=== PATIENT | male | born 1965 | race Hispanic/Latino ===

== ENCOUNTER 2017-05-25 03:11 | Emergency (ER) | payer MEDICARE ==
[2017-05-25 04:19] LABS: Basophils % (Auto) 0.6 % (0.0-1.8); Hematocrit 41.3 % (35.5-45.6); Hemoglobin 13.8 gm/dl (11.8-15.2); Mean Corpuscular HGB Conc 33 % (32-34); Mean Corpuscular Hemoglobin 29 pg (28-32); Mean Corpuscular Volume 87 fl (84-94); Platelet Count 149 K/mm3 (140-440); Red Blood Count 4.76 M/mm3 (3.65-5.03); Red Cell Distribution Width 13.8 % (13.2-15.2); White Blood Count 11.3 K/mm3 (4.5-11.0)
[2017-05-25 04:25] LABS: Anion Gap 20 mmol/L; Blood Urea Nitrogen 10 mg/dL (9-20); Calcium 8.9 mg/dL (8.4-10.2); Carbon Dioxide 23 mmol/L (22-30); Chloride 99.5 mmol/L (98-107); Glucose 99 mg/dL (75-100); Potassium 3.4 mmol/L (3.6-5.0); Sodium 139 mmol/L (137-145)
[2017-05-25 06:48] LABS: Bilirubin,Urine NEG (Negative); Blood,Urine NEG (Negative); Ketones,Urine NEG (Negative); Leukocyte Esterase,Urine NEG (Negative); Nitrite,Urine NEG (Negative); Protein,Urine <15 mg/dL mg/dL (Negative); Urobilinogen,Urine < 2.0 mg/dL (<2.0); WBC,Urine < 1.0 /HPF (0.0-6.0)
[2017-05-25] MEDS ORDERED: K-DUR PO ONE (07:54)
[2017-05-25 07:58] VITALS: BP 124/70
[2017-05-25] MEDS ORDERED: TORADOL IM ONE (08:08)
--- NOTE | 2017-05-25 08:14 | Emergency Department Report ---
HPI - General Chief Complaint: Back Pain/Injury Time Seen by Provider: 05/25/17 07:54 - HPI HPI: This is a 51-year-old male who presents to the emergency department via EMS from home with complaint of a one-week history of left low back pain with some radiation down his leg. The patient has a history of neuropathy that shows up in the lower extremities and feet. Patient says that he has been urinating a lot with some burning on urination but that his primary care physician is following him for this issue. He sees Dr. Nur for primary care and has an appointment tomorrow on the . He did not take anything for symptoms prior to presentation. The patient's symptoms worsen with ambulation or exertion but he says he is able to walk around without any instability. He has a past medical history of GERD, HIV, neuropathy and a past psychiatric history of bipolar disorder, schizoaffective and PTSD. No recent travel or sick contacts at home. ED Past Medical Hx - Past Medical History Previous Medical History?: Yes Hx GERD: Yes Hx Psychiatric Treatment: Yes (bipolar, schizo affective, PTSD) Hx HIV: Yes Additional medical history: neuropathy - Surgical History Past Surgical History?: Yes Additional Surgical History: pins in B/L hips - Social History Smoking Status: Current Every Day Smoker Substance Use Type: None - Medications Home Medications: Home Medications Medication Instructions Recorded Confirmed Last Taken Type Diazepam Tab [Valium] 2 mg PO TID PRN #8 tablet 05/25/17 Unknown Rx Ibuprofen [Motrin] 800 mg PO Q8HR PRN #20 tablet 05/25/17 Unknown Rx ED Review of Systems ROS: Stated complaint: LOWER BACK PAIN Other details as noted in HPI Comment: All other systems reviewed and negative Constitutional: denies: chills, fever Eyes: denies: eye pain, eye discharge, vision change ENT: denies: ear pain, throat pain Respiratory: denies: cough, shortness of breath, wheezing Cardiovascular: denies: chest pain, palpitations Gastrointestinal: denies: abdominal pain, nausea, diarrhea Genitourinary: denies: urgency, dysuria Musculoskeletal: back pain. denies: joint swelling Skin: denies: rash, lesions Neurological: denies: headache, numbness Physical Exam - Physical Exam Vital Signs: Vital Signs 07/05/17 07/05/17 07/05/17 03:16 03:36 07:33 Temperature 98.9 F 98.9 F Pulse Rate 66 60 56 L Respiratory 18 18 18 Rate Blood Pressure 130/79 Blood Pressure 130/79 124/70 [Right] O2 Sat by Pulse 98 98 Oximetry Physical Exam: GENERAL: The patient is well-developed well-nourished. HEENT: Normocephalic. Atraumatic. Extraocular motions are intact. Patient has moist mucous membranes. Pupils equal reactive to light bilaterally. NECK: Supple. Trachea is midline. CHEST/LUNGS: Clear to auscultation. There is no respiratory distress noted. HEART/CARDIOVASCULAR: Regular. There is no tachycardia. There is no gallop rub or murmur. ABDOMEN: Abdomen is soft, nontender. Patient has normal bowel sounds. There is no abdominal distention. SKIN: Skin is warm and dry. NEURO: The patient is awake, alert, and oriented. The patient is cooperative. The patient has no focal neurologic deficits. The patient has normal speech. Normal gait. DTR +2 over 4 patellar bilaterally. MUSCULOSKELETAL: There is no tenderness or deformity. There is no limitation range of motion. There is no evidence of acute injury. Muscle strength 5 out of 5 upper and lower extremities bilaterally including EHL. Positive left straight leg raise test that reproduces his symptoms. BACK: No midline thoracic or lumbar tenderness to palpation or deformity. ED Course Vital Signs 05/25/17 05/25/17 05/25/17 03:16 03:36 07:33 Temperature 98.9 F 98.9 F Pulse Rate 66 60 56 L Respiratory 18 18 18 Rate Blood Pressure 130/79 Blood Pressure 130/79 124/70 [Right] O2 Sat by Pulse 98 98 Oximetry ED Medical Decision Making - Lab Data Result diagrams: 05/25/17 03:47 05/25/17 03:47 - Medical Decision Making 51-year-old male presents with one-week history of left lower back pain with some radiation down the leg. It is reproducible on the straight leg raise test. There is no focal, motor or sensory deficits, numbness or paresthesias or any neurological deficits. No midline thoracic or lumbar tenderness to palpation or deformity. He appears low suspicion for any of the emergent back condition such as cauda equina, epidural abscess or cord compression syndrome. It appears more consistent with sciatica. The patient was given a dose of Toradol here for his discomfort. He has an appointment with his primary care physician tomorrow. He will be given a very low-dose of a muscle relaxant along with anti-inflammatory is to help him until that time. We discussed ice and/or heat intermittently. He will return to the ER if any worsening of symptoms or any acute distress. - Differential Diagnosis sciatica, lumbar radiculopathy, muscle spasm, contusion Critical Care Time: No Critical care attestation.: If time is entered above; I have spent that time in minutes in the direct care of this critically ill patient, excluding procedure time. ED Disposition Clinical Impression: Sciatica Qualifiers: Laterality: left Qualified Code(s): M54.32 - Sciatica, left side Back pain Qualifiers: Back pain location: low back pain Chronicity: unspecified Back pain laterality : left Sciatica presence: with sciatica Sciatica laterality: sciatica of left side Qualified Code(s): M54.42 - Lumbago with sciatica, left side Disposition: TO HOME OR SELFCARE Is pt being admited?: No Condition: Stable Instructions: Sciatica (ED) Additional Instructions: Please follow-up with your primary care doctor as previously scheduled tomorrow. Return to the emergency department with any worsening of your symptoms or any acute distress. You've been prescribed a medication that is sedating. Therefore this medication cannot be mixed with alcohol, or taken prior to driving, working, or being responsible for children. Prescriptions: Diazepam Tab [Valium] 2 mg PO TID PRN #8 tablet PRN Reason: Muscle Spasm Ibuprofen [Motrin] 800 mg PO Q8HR PRN #20 tablet PRN Reason: Pain Referrals: ADALI HARRISON MD [Primary Care Provider] - 3-5 Days Time of Disposition: 08:46
== END 2017-05-25 08:51 | disposition home or self-care (01) ==
LOC: ED 03:11
DX: M54.42 Lumbago with sciatica, left side (principal); K21.9 Gastro-esophageal reflux disease without esophagitis; F25.9 Schizoaffective disorder, unspecified; F31.9 Bipolar disorder, unspecified; F17.200 Nicotine dependence, unspecified, uncomplicated
CPT/HCPCS: 36415; 80048; 81001; 85025; 96372; 99284; J1885

== ENCOUNTER 2017-05-30 20:19 | Emergency (ER) | payer MEDICARE ==
--- NOTE | 2017-05-31 00:27 | Emergency Department Report ---
ED Psych HPI - General Chief Complaint: Psych Stated Complaint: FEELING SUICIDAL Time Seen by Provider: 05/31/17 00:04 Source: patient Mode of arrival: Ambulatory Limitations: No Limitations - History of Present Illness Initial Comments: 51-year-old male presents to the emergency department for psychiatric evaluation. Patient states he's been feeling depressed and having some suicidal thoughts. Patient states he was thinking about taking all his medications. He denies homicidal ideations. He also denies auditory or visual hallucinations. Patient states that he has had decreased appetite, but has been able to tolerate fluids without difficulty. There are no other complaints. MD Complaint: suicidal ideation, feels depressed -: This morning Associated Psychiatric Symptoms: depression, suicidal ideation History of same: Yes Quality: constant Improves With: none Worsens With: none Associated Symptoms: denies other symptoms Treatments Prior to Arrival: none If Self Harm: admits thoughts of, has plan - Related Data Home Medications Medication Instructions Recorded Confirmed Last Taken ARIPiprazole [Abilify TAB] 20 mg PO QHS 05/31/17 05/31/17 05/31/17 Divalproex ER [DepaKOTE ER] 1,000 mg PO QDAY 05/31/17 05/31/17 05/31/17 Dolutegravir Sodium [Tivicay] 50 mg PO DAILY 05/31/17 05/31/17 05/31/17 Gabapentin [Neurontin] 800 mg PO TID 05/31/17 05/31/17 05/31/17 Ranitidine HCl [Zantac 300 MG TAB] 300 mg PO DAILY 05/31/17 05/31/17 05/31/17 Tamsulosin [Flomax] 0.4 mg PO QDAY 05/31/17 05/31/17 05/31/17 Previous Rx's Medication Instructions Recorded Last Taken Type Diazepam Tab [Valium] 2 mg PO TID PRN #8 tablet 05/25/17 Unknown Rx Allergies Allergy/AdvReac Type Severity Reaction Status Date / Time No Known Allergies Allergy Unverified 05/25/17 03:35 ED Review of Systems ROS: Stated complaint: FEELING SUICIDAL Other details as noted in HPI Comment: All other systems reviewed and negative Psychiatric: depression, suicidal thoughts ED Past Medical Hx - Past Medical History Previous Medical History?: Yes Hx GERD: Yes Hx Psychiatric Treatment: Yes (bipolar, schizo affective, PTSD) Hx HIV: Yes Additional medical history: neuropathy - Surgical History Past Surgical History?: Yes Additional Surgical History: pins in B/L hips - Family History Family history: no significant - Social History Smoking Status: Current Every Day Smoker - Medications Home Medications: Home Medications Medication Instructions Recorded Confirmed Last Taken Type Diazepam Tab [Valium] 2 mg PO TID PRN #8 tablet 05/25/17 05/31/17 Unknown Rx ARIPiprazole [Abilify TAB] 20 mg PO QHS 05/31/17 05/31/17 05/31/17 History Divalproex ER [DepaKOTE ER] 1,000 mg PO QDAY 05/31/17 05/31/17 05/31/17 History Dolutegravir Sodium [Tivicay] 50 mg PO DAILY 05/31/17 05/31/17 05/31/17 History Gabapentin [Neurontin] 800 mg PO TID 05/31/17 05/31/17 05/31/17 History Ranitidine HCl [Zantac 300 MG TAB] 300 mg PO DAILY 05/31/17 05/31/17 05/31/17 History Tamsulosin [Flomax] 0.4 mg PO QDAY 05/31/17 05/31/17 05/31/17 History ED Physical Exam - General Limitations: No Limitations General appearance: alert, in no apparent distress - Head Head exam: Present: atraumatic, normocephalic - Eye Eye exam: Present: normal appearance, PERRL, EOMI - ENT ENT exam: Present: normal exam, normal orophraynx, mucous membranes moist - Neck Neck exam: Present: normal inspection, full ROM. Absent: tenderness - Respiratory Respiratory exam: Present: normal lung sounds bilaterally. Absent: respiratory distress - Cardiovascular Cardiovascular Exam: Present: regular rate, normal rhythm, normal heart sounds - GI/Abdominal GI/Abdominal exam: Present: soft, normal bowel sounds. Absent: distended, tenderness - Extremities Exam Extremities exam: Present: normal inspection, full ROM. Absent: tenderness - Back Exam Back exam: Present: normal inspection, full ROM. Absent: tenderness - Neurological Exam Neurological exam: Present: alert, oriented X3. Absent: motor sensory deficit - Skin Skin exam: Present: warm, dry, intact ED Course Vital Signs 05/30/17 05/30/17 21:33 21:52 Temperature 97.8 F 98 F Pulse Rate 73 73 Respiratory 18 16 Rate Blood Pressure 144/94 Blood Pressure 144/94 [Right] O2 Sat by Pulse 100 97 Oximetry ED Medical Decision Making - Lab Data Result diagrams: 05/31/17 00:12 05/31/17 00:12 - Medical Decision Making Laboratory results reviewed. Patient has been medically cleared and evaluated by mental health. Form 1013 has been signed and placed on the patient's chart. Patient is awaiting placement. - Differential Diagnosis depression, bipolar disorder, schizoaffective disorder Critical care attestation.: If time is entered above; I have spent that time in minutes in the direct care of this critically ill patient, excluding procedure time. ED Disposition Clinical Impression: Suicidal ideations, Schizoaffective disorder, bipolar type Disposition: [id number] PSY HOSP/PSY UNIT Is pt being admited?: No Condition: Stable Referrals: PRIMARY CARE [Primary Care Provider] - 3-5 Days Time of Disposition: 02:17
[2017-05-31 00:29] LABS: Basophils % (Auto) 0.7 % (0.0-1.8); Eosinophils % (Auto) 0.8 % (0.0-4.3); Hematocrit 44.6 % (35.5-45.6); Mean Corpuscular HGB Conc 34 % (32-34); Mean Corpuscular Hemoglobin 29 pg (28-32); Mean Corpuscular Volume 88 fl (84-94); Platelet Count 160 K/mm3 (140-440); Red Blood Count 5.08 M/mm3 (3.65-5.03); Red Cell Distribution Width 14.1 % (13.2-15.2); White Blood Count 8.3 K/mm3 (4.5-11.0)
[2017-05-31 00:44] LABS: Anion Gap 17 mmol/L; BUN/Creatinine Ratio 21.66; Blood Urea Nitrogen 13 mg/dL (9-20); Carbon Dioxide 23 mmol/L (22-30); Chloride 98.7 mmol/L (98-107); Glucose 138 mg/dL (75-100); Potassium 3.1 mmol/L (3.6-5.0); Sodium 136 mmol/L (137-145)
[2017-05-31 05:37] LABS: Urine Drugs of Abuse Note Disclamer
[2017-05-31 05:44] LABS: Bilirubin,Urine NEG (Negative); Blood,Urine NEG (Negative); Ketones,Urine NEG (Negative); Leukocyte Esterase,Urine NEG (Negative); Nitrite,Urine NEG (Negative); Urobilinogen,Urine < 2.0 mg/dL (<2.0)
--- NOTE | 2017-05-31 14:12 | Consultation ---
History of Present Illness - Reason for Consult Consult date: 05/31/17 Reason for consult: Mental Health Evaluation Requesting physician: LORNA GREENE - Chief Complaint Chief complaint: "I don't feel right" - History of Present Psychiatric Illness 51-year-old male presents to the emergency department for psychiatric evaluation. Today patient is cooperative, but irritable during assessment. He stated that his SI's has increased over the past week. He stated that his family does not love him. Also, his family blame their mother's on him. He stated that his current situation had gotten the best of him. He stated that voices are telling him to kill himself. He stated that he hear voices "often." Patient admit to SI's. Patient stated that he has attempted suicide multiple times in the past by overdosing and self injury. He stated wanting help for his mental instability, but don't know where to start. He denies HI's, VH's and a poor appetite. He denies recreational drug use, but stated he use a "little cocaine" 5 days ago. He denies excessive alcohol. Patient stated that he is homeless. Medications and Allergies Allergies Allergy/AdvReac Type Severity Reaction Status Date / Time No Known Allergies Allergy Unverified 05/25/17 03:35 Home Medications Medication Instructions Recorded Confirmed Last Taken Type Diazepam Tab [Valium] 2 mg PO TID PRN #8 tablet 05/25/17 05/31/17 Unknown Rx ARIPiprazole [Abilify TAB] 20 mg PO QHS 05/31/17 05/31/17 05/31/17 History Divalproex ER [DepaKOTE ER] 1,000 mg PO QDAY 05/31/17 05/31/17 05/31/17 History Dolutegravir Sodium [Tivicay] 50 mg PO DAILY 05/31/17 05/31/17 05/31/17 History Gabapentin [Neurontin] 800 mg PO TID 05/31/17 05/31/17 05/31/17 History Ranitidine HCl [Zantac 300 MG TAB] 300 mg PO DAILY 05/31/17 05/31/17 05/31/17 History Tamsulosin [Flomax] 0.4 mg PO QDAY 05/31/17 05/31/17 05/31/17 History Past psychiatric history - Past Medical History Past Medical History: GERD, HIV/AIDS Past Surgical History: No surgical history - past Psychiatric treatment and history Psych: Bipolar psychiatric treatment history: Patient has been to multiple inpatient settings. Patient denies fam psy hx. - Social History Social history: other (Homeless) Mental Status Exam - Vital signs Last Vital Signs Temp 98 F 05/30/17 21:52 Pulse 63 05/31/17 08:07 Resp 18 05/31/17 08:07 BP 143/82 05/31/17 08:07 Pulse Ox 98 05/31/17 08:07 - Exam Narrative exam: ROS: (+) depression, (+) psychotic MSE: Appearance: cooperative, irritable Behavior: poor eye contact Speech: regular rate and tone Mood: "not well" Affect: labile Thought Process: circumstantial Thought Content: denies SI and VH's Motor Activity: ambulatory Cognition: A/Ox 3 Insight: limited Judgment: limited Results Result Diagrams: 05/31/17 00:12 05/31/17 00:12 Abnormal lab results 05/31/17 05/31/17 Range/Units 00:12 00:12 RBC 5.08 H (3.65-5.03) M/mm3 Lymph % (Auto) 38.1 H (13.4-35.0) % Sodium 136 L (137-145) mmol/L Potassium 3.1 L (3.6-5.0) mmol/L Creatinine 0.6 L (0.8-1.5) mg/dL Glucose 138 H (75-100) mg/dL All other labs normal. Assessment and Plan Assessment and plan: Impression: Historical Dx: Bipolar. Intermittent AH's. Today patient is cooperative, but irritable during assessment. Patient denies HI's and VH"s. DDx: R/O Mood DO, Schizoaffective DO Recommendation/Plan: Continue 1013 with placement to inpatient psy services. Start Abilify 20 mg PO HS for mood/psychotic symptoms and Depakote 500 mg PO BID for mood. Discussed possible metabolic side effects of Abilify with patient. Ordered LFT's and [facility].
[2017-05-31 16:34] LABS: Alanine Aminotransferase 18 units/L (7-56); Alkaline Phosphatase 67 units/L (35-129)
[2017-05-31] MEDS ORDERED: ABILIFY PO SCH (22:00)
[2017-06-01 04:11] VITALS: BP 138/80
== END 2017-06-01 04:13 ==
LOC: EEVIPCON 20:19 → ED 20:19
DX: R45.851 Suicidal ideations (principal); F20.9 Schizophrenia, unspecified; F31.9 Bipolar disorder, unspecified; K21.9 Gastro-esophageal reflux disease without esophagitis; F43.10 Post-traumatic stress disorder, unspecified; F17.200 Nicotine dependence, unspecified, uncomplicated
CPT/HCPCS: 36415; 80048; 80164; 80307; 81001; 84075; 84450; 84460; 85025; 99285; G0480; 80320